=== PATIENT | female | born 1950 | race Caucasian/White ===

== ENCOUNTER 2021-01-23 18:28 | Emergency (ER) | payer OTHER, MEDICARE, BC ==
[~2021-01-23] VITALS: Ht 160 cm; Wt 79.4 kg
[2021-01-23] MEDS ORDERED: EUTHYROX88 MCG PO ×2 (18:44→18:45)
== END 2021-01-23 19:00 | disposition home or self-care (01) ==
LOC: ER 18:28
DX: S16.1XXA Strain of muscle, fascia and tendon at neck level, initial encounter (principal); E03.9 Hypothyroidism, unspecified; Z79.899 Other long term (current) drug therapy; V49.50XA Passenger injured in collision with unspecified motor vehicles in traffic accident, initial encounter; Y92.411 Interstate highway as the place of occurrence of the external cause
CPT/HCPCS: 99284